=== PATIENT | male | born 1980 | race Two or more races ===

== ENCOUNTER 2020-04-09 18:25 | Emergency (ER) | payer OTHER ==
[~2020-04-09] VITALS: Ht 170.2 cm; Wt 85.7 kg
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
[2020-04-09] MEDS ORDERED: LIDOCAINE 1%-EPI 1:100,000 20 ML VIAL ONE (18:53)
--- NOTE | 2020-04-09 19:02 | NUR ---
TOOK OVER PT CARE.
[2020-04-09] MEDS ORDERED: IBUP-1953 PO (19:10)
--- NOTE | 2020-04-09 19:20 | NUR ---
Written and verbal after care instructions given. Patient verbalizes understanding of instruction.VS STABLE , AWAITING FOR SPLINT PLACEMENT , RPEORT GIVEN TO NARCISO FOR CONTINUITY OF CARE
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
--- NOTE | 2020-04-09 19:34 | NUR ---
Patient discharged to home in stable condition. Written and verbal after care instructions given. Patient verbalizes understanding of instruction.
[2020-04-09 19:35] VITALS: BP 124/86
== END 2020-04-09 19:37 | disposition home or self-care (01) ==
LOC: ER 18:30
DX: S61.512A Laceration without foreign body of left wrist, initial encounter (principal); Z79.899 Other long term (current) drug therapy; W26.0XXA Contact with knife, initial encounter; Y93.89 Activity, other specified; Y92.89 Other specified places as the place of occurrence of the external cause; Y99.8 Other external cause status
CPT/HCPCS: 12001; 99282; A6403; J3490

== ENCOUNTER 2021-03-06 14:55 | Emergency (ER) | payer OTHER ==
[~2021-03-06] VITALS: Ht 170.2 cm; Wt 93.0 kg
[~2021-03-06 14:55] MED LIST: IBUP-1953 PO
[2021-03-06 15:18] VITALS: BP 148/95
--- NOTE | 2021-03-06 16:05 | NUR ---
LEFT BEFORE SEEN BY .
== END 2021-03-06 16:08 | disposition left against medical advice (07) ==
LOC: ER 15:20
DX: Z53.21 Procedure and treatment not carried out due to patient leaving prior to being seen by health care provider (principal); R51.9 Headache, unspecified

== ENCOUNTER 2021-12-23 12:48 | Emergency (ER) | payer OTHER ==
[~2021-12-23] VITALS: Ht 170.2 cm; Wt 95.3 kg
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
[2021-12-23] MEDS ORDERED: KETOROLAC TROMETHAMINE 15 MG/ML VIAL ONE (14:00)
[2021-12-23] MEDS ORDERED: KETOROLAC TROMETHAMINE INJ 30 MG/ML VIAL IM ONE (14:00)
--- NOTE | 2021-12-23 14:00 | NUR ---
PATIENT TAKEN TO CT VIA [facility]
[2021-12-23] MEDS ORDERED: PRED20TA PO (15:17)
[2021-12-23] MEDS ORDERED: CYCL5TAB PO (15:17)
[2021-12-23] MEDS ORDERED: IBUP-1955 PO (15:17)
[2021-12-23] MEDS ORDERED: HYDR-4303 PO (15:17)
[2021-12-23 15:27] VITALS: BP 129/90
--- NOTE | 2021-12-23 15:27 | NUR ---
Patient discharged to home in stable condition. Written and verbal after care instructions given. Patient verbalizes understanding of instruction.
== END 2021-12-23 15:28 | disposition home or self-care (01) ==
LOC: ER 13:01
DX: S29.012A Strain of muscle and tendon of back wall of thorax, initial encounter (principal); M50.30 Other cervical disc degeneration, unspecified cervical region; M54.12 Radiculopathy, cervical region; X58.XXXA Exposure to other specified factors, initial encounter; Y93.89 Activity, other specified; Y92.89 Other specified places as the place of occurrence of the external cause; Y99.8 Other external cause status
CPT/HCPCS: 99284; 72125; 96372; J1885